=== PATIENT | male | born 1970 | race Two or more races ===

== ENCOUNTER 2022-02-12 20:33 | Emergency (ER) | payer MEDICAID, OTHER ==
[~2022-02-12] VITALS: Ht 188 cm; Wt 88.5 kg
[2022-02-12 20:52] VITALS: BP 155/97
--- NOTE | 2022-02-12 20:56 | NUR ---
PATIENT BIBS C/O RASH SINCE THIS AM. PATIENT ALERT AND ORIENTED X3. AMBULATORY WITH NON LABORED BREATHING IN BED 19 AWAITING MD WILLIS.
[2022-02-12] MEDS ORDERED: predniSONE 20 MG TABLET ONE (21:25)
[2022-02-12] MEDS ORDERED: diphenhydrAMINE HCL 50 MG CAPSULE ONE (21:25)
[2022-02-12] MEDS ORDERED: FAMOTIDINE (20 MG) 20 MG TABLET ONE (21:25)
[2022-02-12] MEDS ORDERED: FAMOTIDINE (20 MG) 20 MG TABLET PO ONE (21:30)
[2022-02-12] MEDS ORDERED: PRED50TA PO ×2 (21:30→21:45)
[2022-02-12] MEDS ORDERED: predniSONE 50 MG TABLET PO ONE (21:30)
[2022-02-12] MEDS ORDERED: FAMO-131 PO ×2 (21:30→21:45)
[2022-02-12] MEDS ORDERED: diphenhydrAMINE HCL 25 MG CAPSULE PO ONE (21:30)
--- NOTE | 2022-02-12 21:51 | NUR ---
Patient discharged to home in stable condition. Written and verbal after care instructions given. Patient verbalizes understanding of instruction.
== END 2022-02-12 21:52 | disposition home or self-care (01) ==
LOC: ER 20:34
DX: L50.9 Urticaria, unspecified (principal); I13.10 Hypertensive heart and chronic kidney disease without heart failure, with stage 1 through stage 4 chronic kidney disease, or unspecified chronic kidney disease; N18.9 Chronic kidney disease, unspecified; E78.00 Pure hypercholesterolemia, unspecified
CPT/HCPCS: 99284; Q0163; J7512

== ENCOUNTER 2022-06-08 17:15 | Emergency (ER) | payer MEDICAID ==
[~2022-06-08] VITALS: Ht 182.9 cm; Wt 88.5 kg
[~2022-06-08 17:15] MED LIST: FAMO-131 PO; PRED50TA PO
--- NOTE | 2022-06-08 17:30 | NUR ---
RECEIVED PT 51 YRS MALE CAME FROM HOME C/O HEADACHE SINCE 2 PM AND HX HIN WAS 204/170 AND TOOK HE ROTINE MEDICTION
--- NOTE | 2022-06-08 17:55 | NUR ---
TO CT SCAN OF HEAD
[2022-06-08] MEDS ORDERED: ACETAMINOPHEN 325 MG TABLET PO ONE (18:00)
[2022-06-08] MEDS ORDERED: METOCLOPRAMIDE HCL 10 MG TABLET PO ONE (18:00)
[2022-06-08] MEDS ORDERED: ACETAMINOPHEN 325 MG TABLET ONE (18:08)
[2022-06-08] MEDS ORDERED: METOCLOPRAMIDE HCL 10 MG TABLET ONE (18:09)
--- NOTE | 2022-06-08 18:10 | NUR ---
MARQUEZ FROM CT SCAN DONE
--- NOTE | 2022-06-08 18:18 | NUR ---
Nidia manzano in [facility] - 06/08/22 at 1921 by GAURAV Patient discharged to home in stable condition. Written and verbal after care instructions given. Patient verbalizes understanding of instruction.
--- NOTE | 2022-06-08 18:35 | NUR ---
Nidia manzano in ED - 06/08/22 at 1907 by GAURAV Patient discharged to home in stable condition. Written and verbal after care instructions given. Patient verbalizes understanding of instruction.
[2022-06-08 19:03] VITALS: BP 117/78
--- NOTE | 2022-06-08 19:15 | NUR ---
AT BED SIDE SPOOK WITH PT ABOUT RESULT
--- NOTE | 2022-06-08 19:18 | NUR ---
Patient discharged to home in stable condition. Written and verbal after care instructions given. Patient verbalizes understanding of instruction.
== END 2022-06-08 19:25 | disposition home or self-care (01) ==
LOC: ER 17:20
DX: R51.9 Headache, unspecified (principal); I10 Essential (primary) hypertension; E11.9 Type 2 diabetes mellitus without complications; F17.200 Nicotine dependence, unspecified, uncomplicated
CPT/HCPCS: 99285; 70450; J8597